=== PATIENT | male | born 1965 | race Caucasian/White ===

== ENCOUNTER 2016-08-06 08:58 | Emergency (ER) | payer BC ==
--- NOTE | 2016-08-06 09:38 | ERPHSYRPT ---
- History of Present Illness Time Seen by Provider: 08/06/16 09:28 Historian: patient, family Exam Limitations: no limitations Patient Subjective Stated Complaint: states mid abd pain for two weeks. denies n/v/d. decreased appetite Triage Nursing Assessment: ambulated to room holding abd. skin w/d, color normal, resp easy. abd very tender to touch. normal bowel sounds. Physician History: The patient is a 51-year-old male who complains of increasing abdominal pain for 2 weeks. He denies nausea vomiting or diarrhea. He denies black or bloody stools. The pain is more generalized in the abdomen. Today he was unable to go to work because of the pain. He's tried Kaopectate without relief. Nothing seems to make it worse or better. Eating does not affect it. He denies fever or chills. He drinks about 6 beers every night. His past medical history is significant for back surgery, high blood pressure, anxiety, and GERD. Timing/Duration: week(s) (2), gradual onset, worse Activities at Onset: none Quality: sharpness Abdominal Pain Onset Location: generalized abdomen Pain Radiation: no radiation Severity of Pain-Max: severe Severity of Pain-Current: severe Modifying Factors: Improves With: nothing Associated Symptoms: denies symptoms Previous symptoms: no prior history Allergies/Adverse Reactions: No Known Drug Allergies Allergy (Verified 08/06/16 09:14) Home Medications: Alprazolam [Xanax] 1 mg PO TID 01/19/12 [History] Amlodipine Besylate 5 mg [Norvasc 5 mg] 5 mg PO DAILY 07/25/16 [History] Benazepril HCl [Lotensin] 40 mg PO DAILY 07/25/16 [History] Clonidine HCl 0.1 mg [Catapres 0.1 MG] 0.1 mg PO TID 07/25/16 [History] Hydrocodone/APAP 10/325 mg [[place] 10/325 MG Tablet] 1 tab PO Q6H PRN PRN 07/25/16 [History] Ranitidine HCl [Zantac] 150 mg PO BID 07/25/16 [History] Triamterene/Hydrochlorothiazid [Triamterene-Hctz 37.5-25 mg Tb] 1 each PO DAILY 07/25/16 [History] Hx Tetanus, Diphtheria Vaccination/Date Given: Yes (2013) Hx Influenza Vaccination/Date Given: Yes Hx Pneumococcal Vaccination/Date Given: No - Review of Systems Constitutional: No Fever, No Chills Eyes: No Symptoms Ears, Nose, & Throat: No Symptoms Respiratory: No Cough, No Dyspnea Cardiac: No Chest Pain, No Edema, No Syncope Abdominal/Gastrointestinal: Abdominal Pain, No Nausea, No Vomiting, No Diarrhea , No Hematemesis, No Melena Genitourinary Symptoms: No Dysuria Musculoskeletal: No Symptoms Skin: No Rash Neurological: No Dizziness, No Focal Weakness, No Sensory Changes Psychological: No Symptoms Endocrine: No Symptoms Hematologic/Lymphatic: No Symptoms Immunological/Allergic: No Symptoms All Other Systems: Reviewed and Negative - Past Medical History Pertinent Past Medical History: Yes Neurological History: No Pertinent History ENT History: No Pertinent History Cardiac History: Hypertension Respiratory History: No Pertinent History Endocrine Medical History: No Pertinent History Musculoskeletal History: Degenerative Disk Disease GI Medical History: No Pertinent History History: No Pertinent History Psycho-Social History: Anxiety Male Reproductive Disorders: No Pertinent History - Past Surgical History Past Surgical History: Yes Neuro Surgical History: No Pertinent History Cardiac: No Pertinent History Respiratory: No Pertinent History Gastrointestinal: No Pertinent History Genitourinary: No Pertinent History Musculoskeletal: Orthopedic Surgery Male Surgical History: No Pertinent History Other Surgical History: lumbar michael jan 2012 - Social History Smoking Status: Current every day smoker How long have you smoked: 20 Exposure to second hand smoke: No Drug Use: none Patient Lives Alone: Yes - Nursing Vital Signs Nursing Vital Signs: Initial Vital Signs Temperature 97.4 F Temperature Source Oral Pulse Rate 73 Respiratory Rate 18 Blood Pressure [] 143/92 Pain Intensity 10 - Physical Exam General Appearance: moderate distress Eye Exam: PERRL/EOMI, eyes nml inspection Ears, Nose, Throat Exam: normal ENT inspection, pharynx normal, moist mucous membranes Neck Exam: normal inspection, non-tender, supple, full range of motion Respiratory Exam: normal breath sounds, lungs clear, No respiratory distress Cardiovascular Exam: regular rate/rhythm, normal heart sounds Gastrointestinal/Abdomen Exam: tenderness (generalized), rebound, No hernia Rectal Exam: normal exam, normal rectal tone Back Exam: normal inspection, normal range of motion, No CVA tenderness, No vertebral tenderness Extremity Exam: normal inspection, normal range of motion, pelvis stable Neurologic Exam: alert, oriented x 3, cooperative, normal mood/affect, nml cerebellar function, sensation nml, No motor deficits Skin Exam: normal color, warm, dry SpO2 Interpretation: normal SpO2: 100 Oxygen Delivery: Room Air - CT Exams Abdomen/Pelvis CT Interpretation: Tele-radiologist Report, No appendicitis, Other (no acute process in the abd and pelvis per Dr Calhoun) Ordered Tests: Active Orders 24 hr Category Date Time Status Clean Catch Urine Specimen STAT Care 08/06/16 11:57 Active IV Insertion STAT Care 08/06/16 09:40 Active ABDOMEN AND PELVIS W/0 CONTRAS [CT] Stat Exams 08/06/16 09:41 Completed CBC W DIFF Stat Lab 08/06/16 09:10 Completed CMP Stat Lab 08/06/16 09:10 Completed LIPASE Stat Lab 08/06/16 09:10 Completed Lactic Acid Stat Lab 08/06/16 11:45 Completed Occult Blood-Screening (Stool) [Occult Blood-Screening] Lab 08/06/16 09:10 Completed Stat UA W/RFX UR CULTURE Stat Lab 08/06/16 09:10 Completed Urine Triage Profile Stat Lab 08/06/16 11:57 Completed Medication Summary Discontinued Medications Generic Name Dose Route Start Last Admin Trade Name Freq PRN Reason Stop Dose Admin Al Hydrox/Mg Hydrox/Simethicone Confirm 08/06/16 11:46 Maalox Es 30 Ml Unit Dose Administered 08/06/16 11:47 Dose 30 ml .ROUTE .STK-MED ONE Belladonna Alkaloids/Phenobarbital 60 ml 08/06/16 11:28 08/06/16 11:50 Gi Cocktail 60ml (Belladonn/Phenobarb/Lidoc* PO 08/06/16 11:29 60 ml STAT ONE Administration Belladonna Alkaloids/Phenobarbital Confirm 08/06/16 11:46 Donnatol Liquid Administered 08/06/16 11:47 Dose 64.8 mg .ROUTE .STK-MED ONE Sodium Chloride 1,000 mls @ 999 mls/hr 08/06/16 09:40 08/06/16 10:03 Sodium Chloride 0.9% 1000 Ml IV 08/06/16 10:40 999 mls/hr .Q1H1M STA Administration Sodium Chloride Confirm 08/06/16 09:56 Sodium Chloride 0.9% 1000 Ml Administered 08/06/16 09:57 Dose 1,000 mls @ ud .ROUTE .STK-MED ONE Lidocaine HCl Confirm 08/06/16 11:46 Xylocaine Hcl Viscous * Administered 08/06/16 11:47 Dose 20 ml .ROUTE .STK-MED ONE Morphine Sulfate 8 mg 08/06/16 09:40 08/06/16 10:03 Morphine Sulfate 10 Mg/Ml IV 08/06/16 09:41 8 mg STAT ONE Administration Morphine Sulfate Confirm 08/06/16 09:56 Morphine Sulfate 10 Mg/Ml Administered 08/06/16 09:57 Dose 10 mg .ROUTE .STK-MED ONE Ondansetron HCl 4 mg 08/06/16 09:40 08/06/16 10:03 Zofran 4 Mg/2 Ml Vial IV 08/06/16 09:41 4 mg STAT ONE Administration Ondansetron HCl Confirm 08/06/16 10:02 Zofran 4 Mg/2 Ml Vial Administered 08/06/16 10:03 Dose 4 mg .ROUTE .STK-MED ONE Potassium Chloride 40 meq 08/06/16 10:38 08/06/16 10:49 Klor Con 10 Meq PO 08/06/16 10:39 40 meq STAT ONE Administration Potassium Chloride Confirm 08/06/16 10:46 Klor Con 10 Meq Administered 08/06/16 10:47 Dose 40 meq PO .STK-MED ONE Lab/Rad Data: Laboratory Result Diagrams 08/06/16 09:10 08/06/16 09:10 Laboratory Results 08/06/16 08/06/16 08/06/16 Range/Units 11:57 11:45 09:10 WBC (4.0-10.5) K/mm3 RBC (4.1-5.6) M/mm3 Hgb (12.5-18.0) gm/dl Hct (42-50) % MCV (78-100) fl MCH (26-32) pg MCHC (32-36) g/dl RDW (11.5-14.0) % Plt Count (150-450) K/mm3 MPV (6-9.5) fl Gran % (36.0-66.0) % Lymphocytes % (24.0-44.0) % Monocytes % (0.0-12.0) % Eosinophils % (0.00-5.0) % Basophils % (0.0-0.4) % Basophils # (0-0.4) Sodium (136-145) mEq/L Potassium (3.5-5.1) mEq/L Chloride (98-107) mEq/L Carbon Dioxide (21-32) mEq/L Anion Gap (5-15) MEQ/L BUN (9-20) mg/dL Creatinine (0.55-1.30) mg/dl Estimated GFR ML/MIN Glucose (70-110) MG/DL Lactic Acid 0.9 (0.4-2.0) Calcium (8.5-10.1) mg/dL Total Bilirubin (0.2-1.0) mg/dL AST (15-37) U/L ALT (12-78) U/L Alkaline Phosphatase (46-116) U/L Serum Total Protein (6.4-8.2) gm/dL Albumin (3.4-5.0) g/dL Lipase (73-393) U/L Ur Collection Type Urine Color (YELLOW) Urine Appearance (CLEAR) Urine pH (5-6) Ur Specific [place] (1.005-1.025) Urine Protein (Negative) Urine Glucose (UA) (NEGATIVE) mg/dL Urine Ketones (NEGATIVE) Urine Nitrite (NEGATIVE) Urine Bilirubin (NEGATIVE) Urine Urobilinogen (0-1) mg/dL Urine WBC (Auto) (NEGATIVE) Urine RBC (Auto) (0-5) Margarito/ul Stool Occult Bld Scrn NEGATIVE Urine Opiates Level NEG. (NEGATIVE) Ur Methadone NEG. (NEGATIVE) Urine Barbiturates NEG. (NEGATIVE) Ur Phencyclidine (PCP) NEG. (NEGATIVE) Urine Amphetamine NEG. (NEGATIVE) U Benzodiazepine Level POS. (NEGATIVE) Urine Cocaine NEG. (NEGATIVE) Urine Marijuana (THC) NEG. (NEGATIVE) Specimen Received 08/06/16 08/06/16 08/06/16 Range/Units 09:10 09:10 09:10 WBC 9.9 (4.0-10.5) K/mm3 RBC 4.20 (4.1-5.6) M/mm3 Hgb 13.6 (12.5-18.0) gm/dl Hct 39.2 L (42-50) % MCV 93.3 (78-100) fl MCH 32.4 H (26-32) pg MCHC 34.7 (32-36) g/dl RDW 12.8 (11.5-14.0) % Plt Count 366 (150-450) K/mm3 MPV 9.5 (6-9.5) fl Gran % 73.8 H (36.0-66.0) % Lymphocytes % 17.3 L (24.0-44.0) % Monocytes % 8.0 (0.0-12.0) % Eosinophils % 0.6 (0.00-5.0) % Basophils % 0.3 (0.0-0.4) % Basophils # 0.03 (0-0.4) Sodium 129 L (136-145) mEq/L Potassium 3.2 L (3.5-5.1) mEq/L Chloride 92 L (98-107) mEq/L Carbon Dioxide 25.0 (21-32) mEq/L Anion Gap 14.9 (5-15) MEQ/L BUN 15 (9-20) mg/dL Creatinine 1.41 H (0.55-1.30) mg/dl Estimated GFR 56 ML/MIN Glucose 108 (70-110) MG/DL Lactic Acid (0.4-2.0) Calcium 10.8 H (8.5-10.1) mg/dL Total Bilirubin 0.40 (0.2-1.0) mg/dL AST 18 (15-37) U/L ALT 13 (12-78) U/L Alkaline Phosphatase 59 (46-116) U/L Serum Total Protein 8.5 H (6.4-8.2) gm/dL Albumin 4.5 (3.4-5.0) g/dL Lipase 313 (73-393) U/L Ur Collection Type CLEAN CATCH Urine Color YELLOW (YELLOW) Urine Appearance CLEAR (CLEAR) Urine pH 7.5 (5-6) Ur Specific [place] 1.025 (1.005-1.025) Urine Protein NEGATIVE (Negative) Urine Glucose (UA) NEGATIVE (NEGATIVE) mg/dL Urine Ketones NEGATIVE (NEGATIVE) Urine Nitrite NEGATIVE (NEGATIVE) Urine Bilirubin NEGATIVE (NEGATIVE) Urine Urobilinogen 0.2 (0-1) mg/dL Urine WBC (Auto) NEGATIVE (NEGATIVE) Urine RBC (Auto) NEGATIVE (0-5) Margarito/ul Stool Occult Bld Scrn Urine Opiates Level (NEGATIVE) Ur Methadone (NEGATIVE) Urine Barbiturates (NEGATIVE) Ur Phencyclidine (PCP) (NEGATIVE) Urine Amphetamine (NEGATIVE) U Benzodiazepine Level (NEGATIVE) Urine Cocaine (NEGATIVE) Urine Marijuana (THC) (NEGATIVE) Specimen Received 0502 1000 - Progress Progress: improved Progress Note: 08/06/16 12:44 Pt feeling much better after GI cocktail. Counseled pt/family regarding: lab results, diagnosis, need for follow-up - Departure Time of Disposition: 12:44 Departure Disposition: Home Clinical Impression: Gastritis Condition: Stable Critical Care Time: No Additional Instructions: You have gastritis. The laboratory tests showed that your sodium level was slightly low as well as your potassium level. You were given potassium in the ER. You were also given morphine 8 mg by IV with minimal relief. You were given a GI cocktail with almost complete relief. Take one dose of the Prevpac twice a day for 14 days. Follow-up with Dr. Shah later this week. Prescriptions: Lansoprazole/Amoxiciln/Clarith [Prevpac Patient Pack] 1 each PO BID #28 combo..pkg
[2016-08-06] MEDS ORDERED: Sodium Chloride 0.9% 1000 ML 1,000 ML IV STA (09:40)
[2016-08-06] MEDS ORDERED: MORPHINE SULFATE 10 MG/ML IV ONE (09:40)
[2016-08-06] MEDS ORDERED: Zofran 4 MG/2 ML VIAL IV ONE (09:40)
[2016-08-06] MEDS ORDERED: Sodium Chloride 0.9% 1000 ML 1,000 ML ONE (09:56)
[2016-08-06] MEDS ORDERED: MORPHINE SULFATE 10 MG/ML ONE (09:56)
[2016-08-06] MEDS ORDERED: Zofran 4 MG/2 ML VIAL ONE (10:02)
[2016-08-06 10:04] LABS: BASOPHIL % 0.3 % (0.0-0.4); Eosinophil % 0.6 % (0.00-5.0); Granulocytes % 73.8 % (36.0-66.0); Lymphocytes % 17.3 % (24.0-44.0); Mean Cell Volume 93.3 fl (78-100); Mean Corpuscular Hemoglobin 32.4 pg (26-32); Mean Platelet Volume 9.5 fl (6-9.5); Platelet Count 366 K/mm3 (150-450); Red Cell Distribution Width 12.8 % (11.5-14.0); White Blood Count 9.9 K/mm3 (4.0-10.5)
[2016-08-06 10:05] LABS: Collection Type CLEAN CATCH
[2016-08-06 10:06] LABS: ADD URINE CULTURE? NO (NO); COMPLETE URINE MICROSCOPIC? NO; Ph 7.5 (5-6)
[2016-08-06 10:29] LABS: ALBUMIN 4.5 g/dL (3.4-5.0); ANION GAP 14.9 MEQ/L (5-15); BILIRUBIN,TOTAL 0.4 mg/dL (0.2-1.0); Potassium 3.2 mEq/L (3.5-5.1); Total Protein 8.5 gm/dL (6.4-8.2)
[2016-08-06] MEDS ORDERED: Klor Con 10 MEQ PO ONE ×2 (10:38→10:46)
--- NOTE | 2016-08-06 11:08 | XRAY ---
Exam: CT of the abdomen and pelvis without IV contrast from 08/06/2016. CTDI: 10.98 Comparison: None. Indication: Stomach pain 2 days, no history of prior abdominal surgery. Technique: Non-IV contrast axial images were obtained through the abdomen and pelvis. Reconstructed coronal and sagittal images were created and reviewed. There is opaque contrast seen within the distal small bowel and colon. Apparently, this is due to the patient having taken Kaopectate and Pepto-Bismol recently. We did not give the patient any oral contrast and he gives no history of recent barium study. Findings: The lung bases appear clear. I believe there is a small retrocardiac hiatal hernia. The liver and spleen appear unremarkable. The gallbladder is partially distended and reveals no dense calcifications within it. The pancreas and adrenal glands appear unremarkable. The kidneys are of normal size and shape. No definite renal calculi, hydronephrosis, or renal mass is seen. Mild atherosclerotic vascular calcification is seen within the abdominal aorta and iliac arteries. There is no evidence of aneurysm. No abnormal retroperitoneal lymphadenopathy is seen. No free intraperitoneal air is identified. The appendix within the right lower quadrant is well seen in a retrocecal location and appears normal. The bowel is not distended. I believe there is a diverticulum within the proximal descending colon on axial image #24. Minimal sigmoid colon diverticulosis without evidence of diverticulitis is seen. There is no free fluid within the pelvis. The urinary bladder is mildly distended and appears unremarkable. No urinary bladder stones are seen. The seminal vesicles and prostate gland appear within normal limits of size. The deep pelvic sidewalls appear unremarkable. No enlarged pelvic lymph nodes or other masses are seen. There appears to be a small amount of fluid within the proximal aspect of each inguinal canal. No herniated bowel loops are seen. Common femoral artery vascular calcification is seen. The bones reveal no acute fracture or suspicious bone lesions. Findings consistent with mild to moderate degenerative disc disease are seen at L5-S1. Mild to moderate scattered anterior lateral vertebral endplate spurring is seen within the lower thoracolumbar spine. Impression: 1. Minimal hiatal hernia. 2. Minimal sigmoid colon diverticulosis without evidence of diverticulitis. 3. No other acute process is seen within the abdomen or pelvis. The appendix appears unremarkable. 4. No free intraperitoneal air, free intraperitoneal fluid, or bowel obstruction is seen. 5. Mild to moderate atherosclerotic vascular calcification is seen. 6. Mild to moderate degenerative disc disease at L5-S1.
[2016-08-06] MEDS ORDERED: GI COCKTAIL 60ML (Belladonn/Phenobarb/Lidoc PO ONE (11:28)
[2016-08-06] MEDS ORDERED: MAALOX ES 30 ML UNIT DOSE ONE (11:46)
[2016-08-06] MEDS ORDERED: Donnatol Liquid ONE (11:46)
[2016-08-06] MEDS ORDERED: XYLOCAINE HCl Viscous ONE (11:46)
[2016-08-06 13:02] VITALS: BP 140/81; PULSE 84; O2SAT 98
== END 2016-08-06 13:02 | disposition home or self-care (01) ==
LOC: ED 08:58
DX: K29.70 Gastritis, unspecified, without bleeding (principal); R10.9 Unspecified abdominal pain; Z79.899 Other long term (current) drug therapy
CPT/HCPCS: 36000; 36415; 74176; 80053; 80307; 81002; 82270; 83605; 83690; 85025; 96360; 96374; 96375; 99284; J2270; J2405; A9270-GY

== ENCOUNTER 2018-10-27 11:41 | Day surgery (SDC) | payer BC ==
[2012-01-20 11:55] VITALS: BP 115/75
[2018-10-27] MEDS ORDERED: Xylocaine-Mpf 2% 5 Ml Vial IJ ONE (11:42)
[2018-10-27] MEDS ORDERED: Xylocaine 1% Vial 30 ML PF IJ ONE (11:42)
[2018-10-27] MEDS ORDERED: Depo-Medrol 40 MG/ML IM ONE (11:42)
--- NOTE | 2018-10-27 13:42 | XRAY ---
Indication: Bilateral L4-S1 MBB. Intraoperative fluoroscopy was provided for 15 seconds. Single digital spot image submitted for interpretation demonstrates posterior needle tips projecting over the expected course of the left and right L4-S1 nerve roots. Correlate with intraoperative findings/report.
--- NOTE | 2018-10-27 13:46 | XRAY ---
15 seconds of fluoroscopy was used in surgery for a bilateral L4-L5, L5-S1 MBB.
== END 2018-10-27 13:13 | disposition home or self-care (01) ==
LOC: SDC-PAIN 11:41
PROVIDERS: ATTEND Psychiatry & Neurology Pain Medicine
DX: M47.816 Spondylosis without myelopathy or radiculopathy, lumbar region (principal); I10 Essential (primary) hypertension; F41.8 Other specified anxiety disorders; Z79.899 Other long term (current) drug therapy
CPT/HCPCS: 64493; 64494; 72020; 77002; J1030; J2001

== ENCOUNTER 2022-06-17 06:17 | Day surgery (SDC) | payer MEDICARE ==
[2022-06-17] MEDS ORDERED: Lactated Ringers 1,000 ML IV SCH (06:30)
[2022-06-17] MEDS ORDERED: Sodium Chloride 3 ML UD NEBULES IH ONE ×2 (06:52→07:38)
[2022-06-17] MEDS ORDERED: Xopenex 1.25 MG/0.5 ML UD NEBULE IH ONE (06:52)
[2022-06-17] MEDS ORDERED: Lactated Ringers 1,000 ML IV ONE (07:02)
[2022-06-17] MEDS ORDERED: Xylocaine-Mpf 2% 5 Ml Vial ONE (07:51)
[2022-06-17] MEDS ORDERED: DIPRIVAN 200 MG/20 ML IV ONE (07:51)
[2022-06-17] MEDS ORDERED: Versed 2 MG/2 ML Injection ONE (07:52)
[2022-06-17 09:08] VITALS: BP 127/75; PULSE 80; O2SAT 96
--- NOTE | 2022-06-17 10:38 | OP ---
SURGERY DATE/TIME: 06/17/2022 0756 PREOPERATIVE DIAGNOSES: 1) Vomiting. 2) Weight loss. POSTOPERATIVE DIAGNOSES: 1) Moderate gastritis. 2) Hiatal hernia. 3) Loya's esophagus. PROCEDURE: Esophagogastroduodenoscopy with cold forceps biopsy to gastric antrum and esophagus. SURGEON: Dr. Shah. ANESTHESIA: Medications were given by the anesthesia department. BRIEF HISTORY: The patient is a 57-year-old white male patient presenting now for endoscopic evaluation for vomiting and weight loss. The patient was felt to need to have endoscopic evaluation. He was appraised of the risks of the procedure including the risk of perforation, phlebitis, untoward reaction to medication, bleeding and missed lesions. The patient verbalized his understanding and desired to have the procedure performed. DESCRIPTION OF PROCEDURE: The patient was given the medications by the anesthesia department. He had continuous pulse oximetry, ECG monitoring, intermittent blood pressure monitoring and tidal CO2 monitoring during the examination. He was placed in the left lateral decubitus position. A bite block was placed and the flexible Olympus gastroscope was used to intubate the oropharynx. A view of the larynx was normal. The scope was easily introduced in the esophagus. There appeared to be the presence of hiatal hernia and Loya's-type metaplasia occurring. The scope was passed along the greater curvature into the stomach where normal gastric rugal folds were seen and these distended nicely with insufflation of air. The scope was passed along the greater curvature of the stomach to the antrum. The pylorus was encountered and intubated. The duodenum inspected and found to be normal. The scope is withdrawn towards the stomach again. A retroflex view was obtained of the lesser curvature, fundus and cardia regions of the stomach and we again saw the presence of a hiatal hernia. The scope was then redirected towards the gastric antrum and biopsies obtained to rule out the presence of Helicobacter pylori-type organisms. As the scope was withdrawn from the stomach and esophagus, biopsies were obtained to confirm the presence of Loya's-type metaplasia and rule out any dysplasia. The scope was then removed from the patient who tolerated the procedure well and was sent back to outpatient recovery in good condition.
== END 2022-06-17 09:10 | disposition home or self-care (01) ==
LOC: SDC 06:17
PROVIDERS: ATTEND Family Medicine
DX: K44.9 Diaphragmatic hernia without obstruction or gangrene (principal); K29.70 Gastritis, unspecified, without bleeding; R11.10 Vomiting, unspecified; R63.4 Abnormal weight loss; K22.70 Barrett's esophagus without dysplasia
CPT/HCPCS: 94640; J2250; J2704; J7614; A9270-GY